=== PATIENT | female | born 1960 | race Caucasian/White ===

== ENCOUNTER 2017-11-10 11:04 | Outpatient (CLI) | payer BC | END 2017-11-10 11:05 | disposition home or self-care (01) | LOC: BICMAMMO 11:04 | PROVIDERS: ATTEND Family Medicine | DX: Z12.31 Encounter for screening mammogram for malignant neoplasm of breast (principal) | CPT/HCPCS: 77063; 77067 ==

== ENCOUNTER 2019-05-24 11:55 | Outpatient (CLI) | payer BC ==
--- NOTE | 2019-05-24 12:44 | MMO ---
Bilateral MAMMO Bilat Screen [facility]. CLINICAL HISTORY: Patient is 58 years old and is seen for screening. The patient has no family history of breast cancer. The patient has no personal history of cancer. VIEWS: The views performed were: bilateral craniocaudal with tomosynthesis and bilateral mediolateral oblique with tomosynthesis. FILMS COMPARED: The present examination has been compared to prior imaging studies performed at [facility] on 03/03/2014, 03/17/2015, 04/03/2016 and 11/10/2017. MAMMOGRAM FINDINGS: There are scattered fibroglandular densities. There are no suspicious masses, suspicious calcifications, or new areas of architectural distortion. IMPRESSION: THERE IS NO MAMMOGRAPHIC EVIDENCE OF MALIGNANCY. A ROUTINE FOLLOW-UP MAMMOGRAM IN 1 YEAR IS RECOMMENDED. THE RESULTS OF THIS EXAM WERE SENT TO THE PATIENT. ACR BI-RADS Category 1 - Negative MAMMOGRAPHY NOTE: 1. A negative mammogram report should not delay a biopsy if a dominant of clinically suspicious mass is present. 2. Approximately 10% to 15% of breast cancers are not detected by mammography. 3. Adenosis and dense breasts may obscure an underlying neoplasm. Reported by: LG RICHEY MD Electonically Signed: [id number]
== END 2019-05-24 11:56 | disposition home or self-care (01) ==
LOC: BICMAMMO 11:55
PROVIDERS: ATTEND Family Medicine
DX: Z12.31 Encounter for screening mammogram for malignant neoplasm of breast (principal)
CPT/HCPCS: 77063; 77067

== ENCOUNTER 2019-05-25 07:59 | Outpatient (CLI) | payer BC ==
--- NOTE | 2019-05-25 08:21 | BD ---
EXAM: DEXA bone density examination HISTORY: 58-year-old postmenopausal female for screening COMPARISON: None FINDINGS: L1--bone mineral density 0.944 g/sq cm; T score -0.4 L2--bone mineral density 0.921 g/sq cm; T score -1.0 L3--bone mineral density 1.044 g/sq cm; T score -0.4 L4--bone mineral density 0.967 g/sq cm; T score -0.9 Total L1-L4--bone mineral density 0.969 g/sq cm; T score -0.7 Left femoral neck--bone mineral density0.647; T score -1.8 Total proximal left femur--bone mineral density 0.764; T score -1.5 IMPRESSION: Osteopenia This patient has a 10 year WHO fracture risk of a major osteoporotic fracture of 8.2% and of a hip fracture of 0.8%.
== END 2019-05-25 08:00 | disposition home or self-care (01) ==
LOC: BICMAMMO 07:59
PROVIDERS: ATTEND Family Medicine
DX: Z13.820 Encounter for screening for osteoporosis (principal); M85.852 Other specified disorders of bone density and structure, left thigh
CPT/HCPCS: 77080